=== PATIENT | female | born 1940 | race Caucasian/White ===

== ENCOUNTER 2022-06-23 11:02 | Observation (INO) ==
[2022-06-23] MEDS ORDERED: MORPHINE 2 MG/1 ML SYRINGE IV PRN (14:03)
[2022-06-23] MEDS ORDERED: ONDANSETRON 4 MG/2 ML VIAL IV PRN (14:03)
[2022-06-23] MEDS ORDERED: ACETAMINOPHEN 325 MG TABLET PO PRN (14:03)
[2022-06-23] MEDS ORDERED: GLUCAGON 1 MG VIAL IM PRN (14:03)
[2022-06-23] MEDS ORDERED: DEXTROSE 10% 250 ML BAG IV PRN (14:03)
[2022-06-23] MEDS ORDERED: hydrALAZINE 20 MG/1 ML VIAL IV PRN (14:03)
[2022-06-23] MEDS: INSULIN REGULAR 100 UNIT/ML SUBCUT SCH ×2 (16:18→21:12)
[2022-06-23] MEDS: ENOXAPARIN 30 MG/0.3 ML SYRINGE SUBCUT SCH (21:08)
[2022-06-24 05:05] LABS: Basophils # 0.1 10*3/uL (0.0-0.2); Basophils % 0.6 % (0.0-0.8); Eosinophils # 0.3 10*3/uL (0.0-0.87); Eosinophils % 2.6 % (0.00-10.9); Hemoglobin 10.6 GM/DL (12.0-16.0); Immature Granulocytes % 0.4 %; Immature Granulocytes Absolute 0.04 #; Lymphocytes # 1.7 10*3/uL (1.4-4.0); Lymphocytes % 16.2 % (21.3-54.2); Mean Corpuscular HGB Conc 33.1 GM/DL (32-36); Mean Corpuscular Volume 91.2 FL (87-102); Mean Platelet Volume 10.4 FL (9.6-12.0); Monocytes # 0.9 10*3/uL (0.11-0.8); Monocytes % 8.2 % (1.7-12.7); Platelet Count 319 T/CUMM (130-400); Red Blood Count 3.51 MC/CUMM (3.8-5.5); Red Cell Distribution Width 13.3 % (9.3-17.3); White Blood Count 10.5 T/CUMM (4-12)
[2022-06-24 05:31] LABS: Alanine Aminotransferase 347 U/L (13-56); Albumin 2.6 G/DL (3.4-5.0); Alkaline Phosphatase 50 U/L (45-117); Aspartate Amino Transferase 236 U/L (0-37); Bilirubin,Total < 0.39 MG/DL (0.20-1.00); Blood Urea Nitrogen 19 MG/DL (7-18); Calcium 9.5 MG/DL (8.5-10.1); Carbon Dioxide 25 MMOL/L (21-32); Chloride 110 MMOL/L (98-107); Cholesterol 110 MG/DL (50-200); Glucose 117 MG/DL (74-106); HDL Cholesterol 36 MG/DL (40-60); Potassium 3.4 MMOL/L (3.5-5.1); Risk Ratio 3.06; Sodium 143 MMOL/L (136-145); Total Protein 5.4 G/DL (6.4-8.2); Triglycerides 138 MG/DL (2-150); VLDL Cholesterol 27.6 MG/DL
[2022-06-24] MEDS ORDERED: MAGNESIUM SULF RIDER 2 GM/50 ML PREMIX IV PRN (07:01)
[2022-06-24] MEDS ORDERED: MAGNESIUM SULF RIDER 4 GM/100 ML PREMIX IV PRN (07:01)
[2022-06-24] MEDS ORDERED: POTASSIUM BICARB EFFERVESCENT 20 MEQ TAB.EFF PER TUBE PRN (07:02)
[2022-06-24] MEDS: INSULIN REGULAR 100 UNIT/ML SUBCUT SCH ×4 (07:51→20:41)
[2022-06-24] MEDS ORDERED: POTASSIUM CHLORIDE 20 MEQ TABLET PO ONE (09:16)
[2022-06-24] MEDS: SODIUM CHLORIDE 0.9% 1,000 ML IV SCH ×2 (09:50→20:40)
[2022-06-24] MEDS: PANTOPRAZOLE 40 MG TABLET PO SCH (09:50)
[2022-06-24] MEDS ORDERED: ASPIRIN EC 325 MG TABLET PO ONE (10:00)
[2022-06-24] MEDS ORDERED: POTASSIUM CHLORIDE RIDER 10 MEQ/100 ML PREMIX IV PRN (10:17)
[2022-06-24] MEDS ORDERED: diphenhydrAMINE CAP 50 MG CAPSULE PO ONE (10:17)
[2022-06-24] MEDS ORDERED: DIAZEPAM 5 MG TABLET PO ONE (10:17)
[2022-06-24] MEDS ORDERED: diphenhydrAMINE 50 MG/1 ML VIAL ONE (10:45)
[2022-06-24] MEDS ORDERED: MIDAZOLAM 2 MG/2 ML VIAL ONE (10:45)
[2022-06-24] MEDS: ENOXAPARIN 30 MG/0.3 ML SYRINGE SUBCUT SCH (20:39)
[2022-06-24] MEDS: gemfibroziL 600 MG TABLET PO SCH (20:39)
[2022-06-24] MEDS ORDERED: ROSUVASTATIN 20 MG TABLET PO SCH (21:00)
[2022-06-25] MEDS: SODIUM CHLORIDE 0.9% 1,000 ML IV SCH (03:28)
[2022-06-25 05:02] LABS: Basophils # 0.1 10*3/uL (0.0-0.2); Basophils % 0.7 % (0.0-0.8); Eosinophils # 0.4 10*3/uL (0.0-0.87); Hematocrit 30.2 VOL% (35.7-47.0); Immature Granulocytes % 0.3 %; Immature Granulocytes Absolute 0.03 #; Lymphocytes # 1.9 10*3/uL (1.4-4.0); Mean Corpuscular HGB Conc 33.1 GM/DL (32-36); Mean Corpuscular Volume 91.8 FL (87-102); Mean Platelet Volume 9.9 FL (9.6-12.0); Monocytes # 0.8 10*3/uL (0.11-0.8); Monocytes % 9.2 % (1.7-12.7); Neutrophils % 63.8 % (38.7-73.9); Platelet Count 285 T/CUMM (130-400); Red Blood Count 3.29 MC/CUMM (3.8-5.5); Red Cell Distribution Width 13.3 % (9.3-17.3); White Blood Count 8.8 T/CUMM (4-12)
[2022-06-25 05:16] LABS: Calcium 9.2 MG/DL (8.5-10.1); Osmolality,Calculated 287.8 MOS/KG (273-304); Osmolality,Calculated 293.4 MOS/KG (273-304)
[2022-06-25] MEDS: INSULIN REGULAR 100 UNIT/ML SUBCUT SCH ×2 (07:31→11:59)
[2022-06-25 07:49] VITALS: BP 141/67
[2022-06-25] MEDS: gemfibroziL 600 MG TABLET PO SCH (08:41)
[2022-06-25] MEDS: PANTOPRAZOLE 40 MG TABLET PO SCH (08:41)
[2022-06-25] MEDS ORDERED: lisinopriL 20 MG TABLET PO SCH (09:00)
[2022-06-25] MEDS ORDERED: ASPIRIN EC 81 MG TABLET PO SCH (09:00)
[2022-06-25] MEDS ORDERED: LISINOPRIL/HCTZ 20-12.5 MG TABLET PO SCH (09:00)
[2022-06-25] MEDS ORDERED: ANASTROZOLE 1 MG TABLET PO SCH (09:00)
== END 2022-06-25 12:23 | disposition home or self-care (01) ==
LOC: N.2W → SUATTDRO 12:43
PROVIDERS: ADMIT Internal Medicine; ATTEND Emergency Medicine